=== PATIENT | male | born 1960 | race Caucasian/White ===

== ENCOUNTER → 2021-04-07 | Outpatient (CLI) | payer OTHER | END | disposition home or self-care (01) | LOC: US 13:30 | PROVIDERS: ATTEND Family Medicine | DX: E04.1 Nontoxic single thyroid nodule (principal) ==

== ENCOUNTER 2021-06-30 14:57 | Emergency (ER) | payer OTHER ==
[~2021-06-30] VITALS: Ht 187.9 cm; Wt 117.9 kg
[2021-06-30 19:09] LABS: LYMPH # 0.8 10*3/uL (1.3-4.4); RED CELL DISTRI WIDTH 12.7 % (0-14.5)
[2021-06-30 19:15] LABS: BASO % 0.3 % (0.0-1.0); HEMATOCRIT 37.4 % (42.0-52.0); LYMPH % 20.6 % (27.0-41.0); MEAN CELL VOLUME 91.9 fl (80.0-94.0); MEAN CORPUSCULAR HGB 32.2 pg (27.0-31.0); MEAN PLATELET VOLUME 10.1 fl (9.6-12.3); MONO # 0.3 10*3/uL (0.1-1.0); MONO % 7.2 % (3.0-9.0); NEUT # 2.8 10*3/uL (2.3-7.9); NEUT % 71.6 % (47.0-73.0); PLATELET COUNT AUTOMATED 118 10*3/uL (130-400); RED BLOOD COUNT 4.07 10*6/uL (4.50-5.90); WHITE BLOOD COUNT 3.9 10*3/uL (4.8-10.8)
[2021-06-30 19:23] LABS: ACT PARTIAL THROMBO TIME 33.5 SECONDS (20.0-32.1)
[2021-06-30 19:29] LABS: ALBUMIN 3.1 gm/dl (3.1-4.5); ALKALINE PHOSPHATASE 57 U/L (45-117); BUN 13 mg/dl (7-24); CHLORIDE 101 mmol/L (98-107); CREATININE 0.96 mg/dL (0.70-1.30); LIPASE 133 U/L (73-393); POTASSIUM 3.7 mmol/L (3.5-5.1); SGOT/AST 18 IU/L (3-35); SGPT/ALT 34 U/L (12-78); SODIUM 135 mmol/L (136-145); TOTAL PROTEIN 7.3 gm/dL (6.4-8.2)
== END 2021-06-30 23:00 | disposition home or self-care (01) ==
LOC: ED 14:57
PROVIDERS: Emergency Medicine
DX: U07.1 COVID-19 (principal)

== ENCOUNTER 2021-07-05 03:05 | Inpatient (IN) | payer OTHER ==
[~2021-07-05] VITALS: Ht 187.9 cm; Wt 123.9 kg
[2021-07-05] VITALS (8 sets, daily range): BP systolic 123–140; BP diastolic 65–90
[2021-07-05] MEDS ORDERED: ESOMEPRAZOLE MA40 M1 PO (03:11)
[2021-07-05] MEDS ORDERED: PRAVASTATIN SOD40 MG PO (03:11)
[2021-07-05] MEDS ORDERED: METFORMIN HYDR500 MG PO (03:11)
[2021-07-05 03:27] LABS: HEMATOCRIT 38.6 % (42.0-52.0); MEAN CELL VOLUME 90.6 fl (80.0-94.0); MEAN CORPUSCULAR HGB 31.5 pg (27.0-31.0); MEAN CORPUSCULAR HGB CONC 34.7 g/dl (33.0-37.0); MEAN PLATELET VOLUME 9.3 fl (9.6-12.3); PLATELET COUNT AUTOMATED 223 10*3/uL (130-400); RED BLOOD COUNT 4.26 10*6/uL (4.50-5.90); RED CELL DISTRI WIDTH 12.5 % (0-14.5); WHITE BLOOD COUNT 3.9 10*3/uL (4.8-10.8)
[2021-07-05 03:46] LABS: ALBUMIN 2.9 gm/dl (3.1-4.5); ALKALINE PHOSPHATASE 76 U/L (45-117); BUN 12 mg/dl (7-24); CHLORIDE 106 mmol/L (98-107); CREATININE 0.73 mg/dL (0.70-1.30); POTASSIUM 3.9 mmol/L (3.5-5.1); SGOT/AST 69 IU/L (3-35); SGPT/ALT 65 U/L (12-78); SODIUM 137 mmol/L (136-145); TOTAL PROTEIN 7.7 gm/dL (6.4-8.2)
[2021-07-05 03:52] LABS: ATYPICAL LYMPHS 6 % (0-0); OVALOCYTES FEW; TOTAL CELLS COUNTED 100 #CELLS
[2021-07-05 03:53] LABS: PLATELET SUFFICIENCY NORMAL (NORMAL)
[2021-07-06 00:55] VITALS: BP 136/70
[2021-07-06 03:50] VITALS: BP 142/68
[2021-07-06 06:00] VITALS: BP 148/72
[2021-07-06 06:05] LABS: ALBUMIN 2.8 gm/dl (3.1-4.5); ALKALINE PHOSPHATASE 70 U/L (45-117); BUN 16 mg/dl (7-24); CHLORIDE 104 mmol/L (98-107); CHOLESTEROL 178 mg/dL (<200); CREATININE 0.62 mg/dL (0.70-1.30); LDL CHOLESTEROL 116 mg/dL (9-159); POTASSIUM 3.8 mmol/L (3.5-5.1); SGOT/AST 40 IU/L (3-35); SGPT/ALT 62 U/L (12-78); SODIUM 135 mmol/L (136-145); TOTAL PROTEIN 7.6 gm/dL (6.4-8.2); TRIGLYCERIDES 94 mg/dl (<150)
[2021-07-06 06:45] LABS: HEMATOCRIT 38.9 % (42.0-52.0); MEAN CORPUSCULAR HGB 31.3 pg (27.0-31.0); MEAN CORPUSCULAR HGB CONC 34.7 g/dl (33.0-37.0); MEAN PLATELET VOLUME 9.7 fl (9.6-12.3); RED BLOOD COUNT 4.32 10*6/uL (4.50-5.90); RED CELL DISTRI WIDTH 12.3 % (0-14.5); WHITE BLOOD COUNT 4.6 10*3/uL (4.8-10.8)
[2021-07-06 06:58] LABS: PLATELET COUNT AUTOMATED 305 10*3/uL (130-400)
[2021-07-06 07:12] LABS: ATYPICAL LYMPHS 3 % (0-0); TOTAL CELLS COUNTED 100 #CELLS
[2021-07-06 07:13] LABS: PLATELET SUFFICIENCY NORMAL (NORMAL); POLYCHROMASIA SLIGHT
[2021-07-07 14:13] LABS: VITAMIN D, 25-HYDROXY 45.3 ng/mL (30-100)
[2021-07-07 14:14] LABS: FERRITIN 469.2 ng/mL (22.0-322.0)
== END 2021-07-06 11:39 | disposition home or self-care (01) | DRG 871 ==
LOC: ED 03:05 → EDHOLD 04:17
PROVIDERS: Hospitalist; Internal Medicine; ADMIT Student in an Organized Health Care Education/Training Program; ATTEND Student in an Organized Health Care Education/Training Program
PROC: XW033E5 Introduction of Remdesivir Anti-infective into Peripheral Vein, Percutaneous Approach, New Technology Group 5 (ICD-10-PCS; principal; 2021-07-05)
DX: A41.9 Sepsis, unspecified organism (principal); U07.1 COVID-19; J12.82 Pneumonia due to coronavirus disease 2019; J96.01 Acute respiratory failure with hypoxia; E44.0 Moderate protein-calorie malnutrition; R65.20 Severe sepsis without septic shock; E11.65 Type 2 diabetes mellitus with hyperglycemia; D64.9 Anemia, unspecified; R74.01 Elevation of levels of liver transaminase levels; F17.210 Nicotine dependence, cigarettes, uncomplicated; E78.5 Hyperlipidemia, unspecified; G47.33 Obstructive sleep apnea (adult) (pediatric); I48.91 Unspecified atrial fibrillation; Z71.6 Tobacco abuse counseling; Z79.899 Other long term (current) drug therapy

== ENCOUNTER 2023-11-11 12:04 | Emergency (ER) | payer OTHER ==
[~2023-11-11] VITALS: Ht 187.9 cm; Wt 113.4 kg
[~2023-11-11 12:04] MED LIST: ESOMEPRAZOLE MA40 M1 PO; METFORMIN HYDR500 MG PO; PRAVASTATIN SOD40 MG PO
[2023-11-11] MEDS ORDERED: Acetaminophen/Oxycodone 5 MG/325 MG TABLET PO ONE (13:00)
[2023-11-11] MEDS ORDERED: TRAMADOL HCL50 MG PO (15:38)
== END 2023-11-11 13:31 | disposition home or self-care (01) ==
LOC: ED 12:04
DX: S39.012A Strain of muscle, fascia and tendon of lower back, initial encounter (principal); E10.9 Type 1 diabetes mellitus without complications; F17.290 Nicotine dependence, other tobacco product, uncomplicated; Z98.890 Other specified postprocedural states; W01.0XXA Fall on same level from slipping, tripping and stumbling without subsequent striking against object, initial encounter; Y93.89 Activity, other specified; Y92.89 Other specified places as the place of occurrence of the external cause; Y99.8 Other external cause status